=== PATIENT | female | born 1970 | race Caucasian/White ===

== ENCOUNTER → 2018-07-18 | Outpatient (CLI) | payer OTHER, BC ==
[~2018-07-18] MED LIST: ALPR.25 PO; ANDRODERM1 EAC1; ANXIETY MED; ATOR10 PO; CALMAGZIN; CLIN150 PO; COMPOUND HORMONE; Cipro500 MG PO; Cleocin HCl300 MG PO; Cyclobenzaprine5 MG PO; DIVIGEL TD; FISH1000; Flagyl500 MG PO; LISI5; LORA1 PO; LOSA25 PO; METF500 PO; Multiple Vitam1 EAC1; PROG100 PO; PROGESTRONE; Percocet 5-3251 EACH PO; Prinivil10 MG PO; THYR60 PO; THYROID PO; Zofran Odt4 MG SL; [UNRECOGNIZED DRUG - OTHER]; [UNRECOGNIZED DRUG - OTHER]
== END | disposition home or self-care (01) ==
LOC: PLD 09:52 → LAB SHORT 09:52
DX: D22.72 Melanocytic nevi of left lower limb, including hip (principal); D22.5 Melanocytic nevi of trunk
CPT/HCPCS: 88305

== ENCOUNTER → 2018-08-10 | Outpatient (CLI) | payer OTHER, BC | END | disposition home or self-care (01) | LOC: PLD 10:08 → LAB SHORT 10:08 | DX: C43.59 Malignant melanoma of other part of trunk (principal); D22.72 Melanocytic nevi of left lower limb, including hip | CPT/HCPCS: 88305 ==

== ENCOUNTER → 2018-11-22 | Outpatient (CLI) | payer OTHER, BC | END | disposition home or self-care (01) | LOC: PLD 10:02 → LAB SHORT 10:02 | DX: D22.5 Melanocytic nevi of trunk (principal); D22.62 Melanocytic nevi of left upper limb, including shoulder; D22.71 Melanocytic nevi of right lower limb, including hip | CPT/HCPCS: 88304; 88305 ==

== ENCOUNTER → 2018-12-05 | Outpatient (CLI) | payer OTHER, BC | END | disposition home or self-care (01) | LOC: LAB SHORT 08:10 → PLD 08:10 | DX: D48.5 Neoplasm of uncertain behavior of skin (principal) | CPT/HCPCS: 88305 ==

== ENCOUNTER → 2019-02-08 | Outpatient (CLI) | payer OTHER, BC | END | disposition home or self-care (01) | LOC: PLD 11:11 → LAB SHORT 11:11 | DX: D22.5 Melanocytic nevi of trunk (principal) | CPT/HCPCS: 88305 ==

== ENCOUNTER → 2019-11-06 | Outpatient (CLI) | payer OTHER, BC | END | disposition home or self-care (01) | LOC: LAB SHORT 10:57 → PLD 10:57 | DX: D48.5 Neoplasm of uncertain behavior of skin (principal) | CPT/HCPCS: 88305 ==

== ENCOUNTER → 2020-01-31 | Outpatient (CLI) | payer OTHER, BC ==
[~2020-01-31] MED LIST changes: +CEPH500 PO; +EUTHYROX25 MCG PO; +HYDACE10B PO; +TAMS.4ER PO
== END | disposition home or self-care (01) ==
LOC: LAB SHORT 15:22 → PLD 15:22
DX: D48.5 Neoplasm of uncertain behavior of skin (principal)
CPT/HCPCS: 88305

== ENCOUNTER → 2020-08-27 | Outpatient (CLI) | payer OTHER, BC ==
[~2020-08-27] MED LIST changes: +ACYC200 PO; +ATORVASTATIN CA10 M1 PO; +LEVSOD75 PO
== END | disposition home or self-care (01) ==
LOC: PLD 10:57 → LAB SHORT 10:57
DX: D22.61 Melanocytic nevi of right upper limb, including shoulder (principal)
CPT/HCPCS: 88305

== ENCOUNTER → 2020-09-04 | Outpatient (CLI) | payer OTHER, BC | END | disposition home or self-care (01) | LOC: LAB SHORT 08:21 → LAB 08:21 | DX: D22.71 Melanocytic nevi of right lower limb, including hip (principal) | CPT/HCPCS: 88305 ==

== ENCOUNTER 2020-11-15 08:21 | Day surgery (SDC) | payer OTHER, BC ==
[~2020-11-15] VITALS: Ht 160 cm; Wt 82.4 kg
== END 2020-11-15 11:05 | disposition home or self-care (01) ==
LOC: ORSCSDS 08:21
PROVIDERS: Surgery
PROC: 0DJD8ZZ Inspection of Lower Intestinal Tract, Via Natural or Artificial Opening Endoscopic (ICD-10-PCS; principal; 2020-11-15 09:45)
PROC: 0DB48ZX Excision of Esophagogastric Junction, Via Natural or Artificial Opening Endoscopic, Diagnostic (ICD-10-PCS; principal; 2020-11-15 09:45)
PROC: 0DB78ZX Excision of Stomach, Pylorus, Via Natural or Artificial Opening Endoscopic, Diagnostic (ICD-10-PCS; principal; 2020-11-15 09:45)
DX: R10.13 Epigastric pain (principal); Z12.11 Encounter for screening for malignant neoplasm of colon; Z80.0 Family history of malignant neoplasm of digestive organs; K57.30 Diverticulosis of large intestine without perforation or abscess without bleeding; K20.90 Esophagitis, unspecified without bleeding; I10 Essential (primary) hypertension; E03.9 Hypothyroidism, unspecified; Z79.899 Other long term (current) drug therapy
CPT/HCPCS: 43239; G0105; 88305; 88312; 88342; J2704; J7120

== ENCOUNTER → 2022-06-16 | Outpatient (CLI) | payer OTHER ==
[~2022-06-16] MED LIST changes: +AMOCLA875 PO
== END | disposition home or self-care (01) ==
LOC: LAB SHORT 17:08
DX: J02.9 Acute pharyngitis, unspecified (principal)
CPT/HCPCS: 87081

== ENCOUNTER → 2024-05-08 | Outpatient (CLI) | payer OTHER ==
[2024-05-10 17:17] LABS: B PERTUSSIS/PARAPERTUSS SOURCE Nasal; BORD PARAPERTUSSIS BY PCR Not Detected; BORDETELLA PERTUSSIS BY PCR Not Detected
== END ==
LOC: LAB SHORT 10:31 → LAB 10:31
PROVIDERS: Physician Assistant Medical
DX: R05.1 Acute cough (principal)
CPT/HCPCS: 87798